=== PATIENT | female | born 1990 | race Caucasian/White ===

== ENCOUNTER 2017-07-09 14:01 | Emergency (ER) | payer OTHER ==
[2017-07-09 14:15] VITALS: BP 111/76; PULSE 86; RESP 18; TEMP 98.6; O2SAT 99
--- NOTE | 2017-07-09 14:32 | EDPHY ---
H & P Time Seen by Provider: 07/09/17 14:22 HPI/ROS: CHIEF COMPLAINT: Left ring finger injury HISTORY OF PRESENT ILLNESS: 26-year-old female presents to the emergency department with injury to her left ring finger. 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 She did not sustain a laceration. She complains of isolated pain to the distal aspect of her left ring finger. Patient is right-hand dominant. Denies any other trauma or injury. ROS: Denies numbness or tingling in her fingers, injury to the other fingers, pain in her wrist. Past Medical/Surgical History: Rheumatoid arthritis Social History: Single and works at [employer] Smoking Status: Current every day smoker Physical Exam: On examination the patient has mild swelling noted to the D IP joint of the left 4th finger. Unable to flex the finger secondary to pain normal sensation to light touch with normal 2 point discrimination. No evidence of rotational deformity. No abrasion or puncture wound. No laceration. The other fingers do not appear injured. Constitutional: Initial Vital Signs Temperature (C) 37.0 C 07/09/17 14:12 Heart Rate 86 07/09/17 14:12 Respiratory Rate 18 07/09/17 14:12 Blood Pressure 111/76 07/09/17 14:12 O2 Sat (%) 99 07/09/17 14:12 O2 Delivery Mode Room Air Allergies/Adverse Reactions: No Known Allergies Allergy (Unverified 07/09/17 14:11) Home Medications: Medication Instructions Recorded NK [No Known Home Meds] 07/09/17 MDM/Departure - MDM Imaging Results: Imaging Impressions Finger X-Ray 07/09/17 14:22 Impression: No acute bony abnormalities. Imaging: I viewed and interpreted images myself Procedures: Patient was placed in [place] splint and han taped and examined post application in good placement with normal CULINARY ASSISTANT. ED Course/Re-evaluation: 26-year-old female presents to the emergency department with left ring finger injury. X-rays reveal no fractures. She was placed in [place] splint and han taped and examined post application in good placement with normal CULINARY ASSISTANT. - Depart Disposition: Home, Routine, Self-Care Clinical Impression: Contusion of left ring finger Qualifiers: Encounter type: initial encounter Damage to nail status: without damage Qualified Code(s): S60.042A - Contusion of left ring finger without damage to nail, initial encounter Condition: Good Instructions: Contusion in Adults (ED) Additional Instructions: Splint for comfort and support. Ibuprofen 600 mg every 8 hr as needed for pain. Activity as tolerated. Referrals: Linda Snider MD [Medical Doctor] - 2-3 days, call for appt. (Orthopedic hand surgeon on-call.)
== END 2017-07-09 15:20 | disposition home or self-care (01) ==
DX: S60.042A Contusion of left ring finger without damage to nail, initial encounter (principal); F17.200 Nicotine dependence, unspecified, uncomplicated; W29.0XXA Contact with powered kitchen appliance, initial encounter; Y99.0 Civilian activity done for income or pay; Y93.G1 Activity, food preparation and clean up
CPT/HCPCS: L3925